=== PATIENT | male | born 1985 | race African-American/Black ===

== ENCOUNTER 2025-07-02 14:29 | Emergency (ER) | payer MEDICAID ==
[~2025-07-02] VITALS: Ht 182.9 cm; Wt 74.0 kg
[2025-07-02 14:39] VITALS: O2SAT 99
[2025-07-02] MEDS: BACITRACIN ZINC OINT UDPKT TOP ONE (16:27)
[2025-07-02] MEDS: TETANUS, DIPHTHERIA, PERTUSSIS VAC/PF 0.5ML (>10YR OLD) IM ONE (16:27)
[2025-07-02] MEDS: ACETAMINOPHEN 500MG TABLET PO ONE (16:27)
[2025-07-02] MEDS: LIDOCAINE HCL 1% 20ML VIAL INFIL ONE (16:28)
[2025-07-02] MEDS ORDERED: BO1 TP (16:58)
[2025-07-02] MEDS ORDERED: AMOX1TAB16 MT (16:58)
[2025-07-02] MEDS ORDERED: NAPR-681 MT (16:58)
[2025-07-02 17:57] VITALS: BP 136/79; PULSE 84; RESP 21; TEMP 36.9; O2SAT 98
== END 2025-07-02 18:01 | disposition home or self-care (01) ==
LOC: ER 14:29
DX: S61.411A Laceration without foreign body of right hand, initial encounter (principal); Z79.1 Long term (current) use of non-steroidal anti-inflammatories (NSAID); Z59.00 Homelessness unspecified; Y09 Assault by unspecified means; Y93.89 Activity, other specified; Y92.89 Other specified places as the place of occurrence of the external cause; Y99.8 Other external cause status
CPT/HCPCS: 73120; 90715; 12001; 90471; 99283; J2003; Z7610 ×2